=== PATIENT | female | born 1975 | race African-American/Black ===

== ENCOUNTER 2017-04-28 01:35 | Emergency (ER) | payer MEDICARE, OTHER ==
[~2017-04-28] VITALS: Ht 162.6 cm; Wt 55.8 kg
--- NOTE | 2017-04-28 01:50 | NUR ---
GETACHEW, WANTS TO BE MEDICALLY CLEARED TO GO TO [facility]. [facility]. PT AOX3 RR EVEN AND UNLABORED. NO SOB NOTED. NAD NOTED. NO NVD AT THIS TIME. PT NOT DIAPHORETIC. PT WAITING FOR MD MITCHELL.
--- NOTE | 2017-04-28 01:56 | NUR ---
URINE COLLECTED. 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
--- NOTE | 2017-04-28 02:18 | NUR ---
LAB AT BEDSIDE FOR BLOOD DRAW
[2017-04-28 02:33] LABS: APPEARANCE,URINE SL CLOUDY (CLEAR); BILIRUBIN,URINE NEGATIVE (NEGATIVE); BLOOD, URINE NEGATIVE Ery/uL (NEGATIVE); COLOR,URINE YELLOW (YELLOW); KETONES,URINE NEGATIVE (NEGATIVE); LEUKOCYTE ESTERASE ,URINE NEGATIVE (NEGATIVE); NITRITE, URINE NEGATIVE (NEGATIVE); PH,URINE 6.5 (5.0-8.0); PROTEIN,URINE NEGATIVE (NEGATIVE); UGLUCOSE NEGATIVE (NEGATIVE); UROBILINOGEN,URINE 0.2 EU/dL (0.2)
[2017-04-28 02:38] LABS: CALCIUM, SERUM 9.1 mg/dL (8.5-10.1); CARBON DIOXIDE 27 mmol/L (21-32); CHLORIDE 107 mmol/L (98-107); CREATININE 0.8 mg/dL (0.6-1.3); GLUCOSE 107 mg/dL (74-106); POTASSIUM 3.8 mmol/L (3.5-5.1); SODIUM SERUM 143 mmol/L (136-145); UREA NITROGEN, BLOOD 10 mg/dL (7-18)
[2017-04-28 02:53] LABS: HEMATOCRIT 27 % (33-45); HEMOGLOBIN 7.9 g/dL (11.5-14.8); MEAN CORPUSCULAR HEMOGLOBIN 19 PG (26.0-33.0); MEAN CORPUSCULAR HGB CONC 30 g/dl (31.0-36.0); MEAN CORPUSCULAR VOLUME 63 fL (82-100); PLATELET COUNT (AUTO) 324 /CMM (150-450); RED BLOOD CELL COUNT(AUTO) 4.26 MIL/uL (4.0-5.2); WHITE BLOOD COUNT (AUTO) 4.4 K/uL (4.3-11.0)
[2017-04-28 02:54] LABS: ALANINE AMINOTRANSFERASE 16 U/L (12-78); ALBUMIN 3.4 g/dL (3.4-5.0); ALCOHOL, BLOOD < 3 mg/dL (0-0); ALKALINE PHOSPHATASE 55 U/L (46-116); ASPARTATE AMINOTRANSFERASE 14 U/L (15-37); BILIRUBIN,TOTAL 0.1 mg/dL (0.2-1.0); SALICYLATE 5.6 mg/dL (2.8-20.0); TOTAL PROTEIN, SERUM 7.3 g/dL (6.4-8.2)
[2017-04-28 02:55] LABS: ACETAMINOPHEN 0 ug/ml (10-30)
[2017-04-28 02:59] LABS: EOSINOPHILS % (MANUAL) 4 % (0-4); LYMPHOCYTES % (MANUAL) 53 % (16-48); MONOCYTES % (MANUAL) 6 % (0-11.0); NEUTROPHILS % (MANUAL) 37 (42-76)
--- NOTE | 2017-04-28 03:03 | NUR ---
ART CALLED FOR EVAL
--- NOTE | 2017-04-28 03:43 | NUR ---
ART AT BEDSIDE FOR EVAL
--- NOTE | 2017-04-28 07:18 | NUR ---
REPORT GIVEN TO ÁNGELA OCAMPO FOR [facility].
[2017-04-28 11:47] VITALS: BP 111/64
--- NOTE | 2017-04-28 11:48 | NUR ---
URINE SAMPLE COLLECTED SENT TO LAB
--- NOTE | 2017-04-28 12:16 | NUR ---
GAVE REPORT TO TENNILLE MOTTA AT [facility] FOR VOLUNTARY ADMIT.
== END 2017-04-28 12:33 ==
LOC: ER 01:35
DX: R45.851 Suicidal ideations (principal); F20.9 Schizophrenia, unspecified
CPT/HCPCS: 36415; 80048; 80076; 80305; 80329; 81001; 84703; 85025; 99285; A4606; G0480 ×2; 81000-TC; Z7610

== ENCOUNTER 2018-02-22 22:00 | Emergency (ER) | payer MEDICARE, OTHER ==
[~2018-02-22] VITALS: Ht 162.6 cm; Wt 50.8 kg
--- NOTE | 2018-02-22 22:10 | NUR ---
PT BIBSELF FROM [facility]. PT STATES "I'M HEARING VOICES TO KILL MYSELF IN ANY WAY". DENIES HI. PT IS AAOX4. RESPIRATIONS EVEN AND UNLABORED. NO ACUTE DISTRESS NOTED. PT AMBULATORY TO ER BED 11. VITAL SIGNS STABLE
--- NOTE | 2018-02-22 22:20 | NUR ---
URINE COLLECTED. CALLED LAB FOR FLOATING DERRICK OPERATOR
[2018-02-22 23:04] LABS: APPEARANCE,URINE CLEAR (CLEAR); BILIRUBIN,URINE NEGATIVE (NEGATIVE); BLOOD, URINE 1+ Ery/uL (NEGATIVE); COLOR,URINE YELLOW (YELLOW); KETONES,URINE TRACE (NEGATIVE); LEUKOCYTE ESTERASE ,URINE NEGATIVE (NEGATIVE); NITRITE, URINE NEGATIVE (NEGATIVE); PH,URINE 7.5 (5.0-8.0); PROTEIN,URINE TRACE mg/dl (NEGATIVE); UGLUCOSE NEGATIVE (NEGATIVE); UROBILINOGEN,URINE 0.2 EU/dL (0.2)
[2018-02-22 23:06] LABS: CALCIUM, SERUM 8.9 mg/dL (8.5-10.1); CARBON DIOXIDE 27 mmol/L (21-32); CHLORIDE 107 mmol/L (98-107); CREATININE 0.8 mg/dL (0.6-1.3); GLUCOSE 92 mg/dL (74-106); POTASSIUM 3.6 mmol/L (3.5-5.1); SODIUM SERUM 141 mmol/L (136-145); UREA NITROGEN, BLOOD 10 mg/dL (7-18)
[2018-02-22 23:07] LABS: HEMATOCRIT 25 % (33-45); HEMOGLOBIN 7.3 g/dL (11.5-14.8); MEAN CORPUSCULAR VOLUME 64 fL (82-100); RED BLOOD CELL COUNT(AUTO) 3.86 MIL/uL (4.0-5.2); WHITE BLOOD COUNT (AUTO) 4.6 K/uL (4.3-11.0)
[2018-02-22 23:08] LABS: BASOPHILS % (AUTO) 1.4 % (0.0-2.0); EOSINOPHILS % (AUTO) 4.7 % (0.0-6.0); LYMPHOCYTES % (AUTO) 52.3 % (20.0-44.0); MEAN CORPUSCULAR HGB CONC 30 g/dl (31.0-36.0); MONOCYTES % (AUTO) 12.4 % (2.0-12.0); NEUTROPHILS % (AUTO) 29.2 % (43.0-81.0); PLATELET COUNT (AUTO) 428 /CMM (150-450); RDW COEFFICIENT OF VARIATION 22.1 (11.5-15.0)
[2018-02-22 23:12] LABS: ALANINE AMINOTRANSFERASE 12 U/L (12-78); ALBUMIN 3.5 g/dL (3.4-5.0); ALKALINE PHOSPHATASE 46 U/L (46-116); ASPARTATE AMINOTRANSFERASE 11 U/L (15-37); BILIRUBIN,TOTAL 0.1 mg/dL (0.2-1.0); TOTAL PROTEIN, SERUM 7.2 g/dL (6.4-8.2)
[2018-02-22 23:12] LABS: BACTERIA,URINE Few /HPF (None Seen); MUCUS,URINE Moderate /LPF (None Seen); SQUAMOUS EPITHELIAL CELL,UR Few /HPF (None Seen); WBC,URINE 0-2 /HPF (0-3)
[2018-02-22 23:13] LABS: ACETAMINOPHEN 0 ug/ml (10-30); ALCOHOL, BLOOD < 3 mg/dL (0-0); SALICYLATE 1.7 mg/dL (2.8-20.0)
[2018-02-23] MEDS ORDERED: LORAZEPAM 1 MG TABLET ONE (00:53)
[2018-02-23] MEDS ORDERED: LORAZEPAM 1 MG TABLET PO ONE (01:00)
--- NOTE | 2018-02-23 04:09 | NUR ---
GAVE REPORT TO ART FROM [facility] FOR [facility]
[2018-02-23 04:11] VITALS: BP 110/68
== END 2018-02-23 04:14 ==
LOC: ER 22:00
DX: F12.10 Cannabis abuse, uncomplicated (principal); R45.851 Suicidal ideations; F20.9 Schizophrenia, unspecified
CPT/HCPCS: 36415; 80048; 80076; 80305; 80329; 81001; 84703; 85025; 99285; A4606; G0480 ×2; 81000-TC; Z7610

== ENCOUNTER 2018-03-03 11:21 | Emergency (ER) | payer MEDICARE, OTHER ==
[~2018-03-03] VITALS: Ht 162.6 cm; Wt 50.8 kg
[2018-03-03] MEDS ORDERED: KETOROLAC TROMETHAMINE INJ 30 MG/ML VIAL IV ONE (12:00)
[2018-03-03] MEDS ORDERED: diphenhydrAMINE HCL 50 MG/ML VIAL IV ONE (12:00)
[2018-03-03] MEDS ORDERED: METOCLOPRAMIDE HCL 10 MG/2 ML VIAL IV ONE (12:00)
[2018-03-03] MEDS ORDERED: METOCLOPRAMIDE HCL 10 MG/2 ML VIAL ONE (12:19)
[2018-03-03] MEDS ORDERED: diphenhydrAMINE HCL 50 MG/ML VIAL ONE (12:19)
[2018-03-03] MEDS ORDERED: KETOROLAC TROMETHAMINE INJ 30 MG/ML VIAL ONE (12:19)
[2018-03-03] MEDS ORDERED: IV NS 0.9% 1,000 ML BAG IV ONE (12:30)
--- NOTE | 2018-03-03 13:03 | NUR ---
HEADACHE AND ORAL PAIN X "COUPLE OF DAYS". PT AAOX3, VSS. DENIES DIZZINESS, N/V, WEAKNESS, VISUAL CHANGES/PHOTOPHOBIA OR ANY OTHER DISCOMFORT @ THIS TIME. PT SPEAKING FLUENTLY, NO FACIAL DROOPING, NO ARM/LEG DRIFTING @ THIS TIME. PT SEEN & EVAL'D BY MAYNOR BEAVER. MEDICATED FOR PAIN & WILL CONT TO MONITOR.
[2018-03-03 14:39] VITALS: BP 124/80
== END 2018-03-03 14:40 | disposition home or self-care (01) ==
LOC: ER 11:22
DX: G43.909 Migraine, unspecified, not intractable, without status migrainosus (principal); F20.9 Schizophrenia, unspecified
CPT/HCPCS: 84703; 96374; 96375; 99284; J1200; J1885; J2765; J7030; A4606; Z7610

== ENCOUNTER 2018-04-13 06:42 | Emergency (ER) | payer MEDICARE, OTHER ==
[~2018-04-13] VITALS: Ht 162.6 cm; Wt 52.6 kg
[2018-04-13 06:45] VITALS: BP 134/73
== END 2018-04-13 08:25 | disposition left against medical advice (07) ==
LOC: ER 06:42
DX: Z53.21 Procedure and treatment not carried out due to patient leaving prior to being seen by health care provider (principal); F32.9 Major depressive disorder, single episode, unspecified; F20.9 Schizophrenia, unspecified
CPT/HCPCS: A4606; Z7610